=== PATIENT | female | born 1970 | race African-American/Black ===

== ENCOUNTER 2021-06-10 16:07 | Emergency (ER) | payer MEDICAID ==
[2021-06-10] MEDS ORDERED: HYDROmorphone 1 MG/ML CARPUJECT IM STA ×2 (16:32→17:32)
[2021-06-10] MEDS ORDERED: KETOROLAC 60 MG/2 ML VIAL IM STA (16:32)
[2021-06-10] MEDS ORDERED: CHERRY SYRUP 10 ML UDC PO ONE (16:32)
[2021-06-10] MEDS ORDERED: DEXAMETHASONE 10 MG/ML VIAL PO STA (16:32)
--- NOTE | 2021-06-10 16:33 | ED Physician Documentation ---
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 She felt a pop in her back, it was not painful at the time but this morning around 11:30 AM developed severe progressive left- sided low back pain radiating to the hip and thigh. There is no associated weakness, numbness, tingling, saddle anesthesia, incontinence, fever, IV drug use. She has not had back problems before. Review of Systems Constitutional: denies: Fever, Chills Eyes: reports: Reviewed and negative Ears: reports: Reviewed and negative Nose: reports: Reviewed and negative Throat: reports: Reviewed and negative PD PAST MEDICAL HISTORY - Present Medications Home Medications: Ambulatory Orders Medication Instructions Recorded Confirmed Ibuprofen [Motrin] 800 mg PO Q8H PRN #30 tablet 06/10/21 Oxycodone HCl/Acetaminophen 1 - 2 each PO Q6H PRN #14 tablet 06/10/21 [Percocet 5-325 mg Tablet] - Allergies Allergies/Adverse Reactions: Allergies Allergy/AdvReac Type Severity Reaction Status Date / Time No Known Drug Allergies Allergy Verified 06/10/21 16:19 - Social History Does the pt smoke?: No Smoking Status: Never smoker PD ED PE NORMAL - Vitals Vital signs reviewed: Yes - General General: Alert and oriented X 3, No acute distress - HEENT HEENT: PERRL, EOMI - Neck Neck: Supple, no meningeal sign, No bony TTP - Cardiac Cardiac: RRR, No murmur - Respiratory Respiratory: No respiratory distress, Clear bilaterally - Abdomen Abdomen: Non tender - Back Back: Other (She appears uncomfortable and winces with any motion. She does have significant tenderness of the left paralumbar musculature. No midline spinal tenderness.) - Extremities Extremities: Other (The patient has equal and normal Achilles and patellar reflexes bilaterally. Normal sensation in all areas of the legs. Patient denies saddle anesthesia. Normal strength in flexion-extension at the ankles, knees, and flexion of the hips.) - Neuro Neuro: Alert and oriented X 3, Normal speech Results - Vitals Vitals: Vital Signs - 24 hr 06/10/21 06/10/21 16:20 18:26 Temperature 36.7 C Heart Rate 94 86 Respiratory 20 18 Rate Blood Pressure 167/82 H 162/95 H O2 Saturation 94 100 Oxygen O2 Source Room air PD MEDICAL DECISION MAKING - ED course ED course: This patient has seemingly uncomplicated musculoskeletal back pain. The patient has no "red flags." Specifically denies IV drug use, fevers, incontinence, saddle anesthesia. Spinal epidural abscess was considered, given that the patient has no fever, is not diabetic, has no spinal tenderness, does not use IV drugs, and has no bilateral neurologic symptoms, the diagnosis of spinal epidural abscess is considered exceedingly unlikely. I am prescribing a short course of short-acting opioid pain medication for this patient. I have reviewed the patients EVENTS DIRECTOR and no concerning findings were noted. I have discussed that the opioids are for short term therapy only, and will not be refilled from the ED. Took a call from the patient after discharge. The patient had gone to the pharmacy where they declined to fill her prescription. It was unclear why. Initially it was because the quantity was too high, they would not fill 60 pills. I discussed with the patient that the prescription was at the pharmacy and electronically verified and the narcotic prescription was only about [address]. [address] the family member came back and received a prepack for the evening after the pharmacy was closed so that she could get through the night and deal with it in the morning. Departure - Departure Disposition: 01 Home, Self Care Clinical Impression: Back pain Qualifiers: Back pain location: low back pain Chronicity: acute Back pain laterality: left Sciatica presence: without sciatica Qualified Code(s): M54.50 - Low back pain, unspecified Condition: Good Record reviewed to determine appropriate education?: Yes Instructions: ED Low Back Pain Injury Follow-Up: AMBROCIO KIDD PA-C [Physician No Access] - Prescriptions: Ibuprofen [Motrin] 800 mg PO Q8H PRN #30 tablet PRN Reason: PAIN &/OR FEVER Oxycodone HCl/Acetaminophen [Percocet 5-325 mg Tablet] 1 - 2 each PO Q6H PRN #14 tablet PRN Reason: pain Comments: Prescription sent electronically to [facility] in [place]. The primary care provider on-call for follow-up this week is listed on this form. You can follow-up with her for recheck of your back. If pain is persistent consider physical therapy referral, if it is persistent past a couple of months also MRI. Return for new or worsening symptoms. I am prescribing a short course of narcotic pain medication for you. These are potentially dangerous and addictive medications that should be used carefully. These medications may constipate you. Take an ibxn-mxv-vurzskx stool softener (docusate) twice daily with plenty of water while taking these medications. If you go 24 hours without a bowel movement, take jhyd-flz-zjgfqkq miralax, per package instructions. Do not drink or drive while taking these medications. If you received narcotic or sedating medications while in the emergency department, do not drive for 24 hours. Store this medication in a safe, secure place and out of reach of children. It is a violation of federal law to give or sell this medication to another person or to use in a manner other than prescribed. The ED will not refill narcotic prescriptions, including prescriptions lost or stolen. To dispose of unwanted medications: 1. [facility] at [address] in [place] has a medication drop box. They accept prescription medications (in pill form) Wednesday through Wednesday 9:00 a.m. to 5:00 p.m. 2. [facility] accepts prescription medications (in pill form only) for disposal year round. Call for more inf ormation. 3. Contact the [facility] for the next [facility] sponsored prescription drug collection event. , [phone], or [phone]; Note that many narcotic pain relievers also contain Tylenol/acetaminophen. Please ensure that your total dose of acetaminophen from all sources does not exceed 3 g (3000 mg) per day. Forms: Activity restrictions Discharge Date/Time: 06/10/21 18:54
[2021-06-10 18:27] VITALS: BP 162/95
[2021-06-10] MEDS ORDERED: oxyCODONE/ACET 5/325 Prepack 4 PO STA (19:47)
== END 2021-06-10 18:54 | disposition home or self-care (01) ==
LOC: ED 16:07
DX: M54.50 Low back pain, unspecified (principal)
CPT/HCPCS: 96372; 99283; A9270; J1170

== ENCOUNTER 2022-09-16 11:27 | Outpatient (CLI) | payer MEDICAID ==
[2022-09-16 11:37] LABS: BASOPHILS % (AUTO) 0.2 %; EOSINOPHILS # (AUTO) 0.1 10^3/uL (0.0-0.7); EOSINOPHILS % (AUTO) 0.6 %; HGB - HEMOGLOBIN 11.7 g/dL (12.0-16.0); LYMPHOCYTES # (AUTO) 3.1 10^3/uL (1.5-3.5); LYMPHOCYTES % (AUTO) 33.1 %; MEAN CORPUSCULAR HEMOGLOBIN 27.1 pg (27.0-31.0); MEAN CORPUSCULAR HGB CONC 30.8 g/dL (32.0-36.0); MEAN CORPUSCULAR VOLUME 88.2 fL (81.0-99.0); MEAN PLATELET VOLUME 9.3 fL (7.9-10.8); MONOCYTES # (AUTO) 0.7 10^3/uL (0.0-1.0); MONOCYTES % (AUTO) 7.8 %; NEUTROPHILS # (AUTO) 5.4 10^3/uL (1.5-6.6); PLT - PLATELET COUNT 367 10^3/uL (130-450); RED BLOOD COUNT 4.31 10^6/uL (4.20-5.40); WHITE BLOOD COUNT 9.3 x10^3/uL (4.8-10.8)
[2022-09-16 12:23] LABS: CHOL/HDL RATIO 5.7 (<4.4); CHOLESTEROL 240 mg/dL; HDL CHOLESTEROL 42 mg/dL; LDL CHOLESTEROL,CALCULATED 162 mg/dL; LDL/HDL RATIO 3.9 (<4.4); TRIGLYCERIDES 180 mg/dL; VLDL CHOLESTEROL 36 mg/dL
[2022-09-16 12:28] LABS: THYROID STIMULATING HORMONE 2.56 uIU/mL (0.34-5.60)
[2022-09-16 12:30] LABS: ESTIMATED AVERAGE GLUCOSE 131 mg/dL (70-100); FREE T4 (FREE THYROXINE) 0.87 ng/dL (0.58-1.64); HEMOGLOBIN A1c% 6.2 % (4.27-6.07)
[2022-09-16 12:34] LABS: FERRITIN 27.2 ng/mL (11.0-306.8)
== END 2022-09-16 11:28 | disposition home or self-care (01) ==
LOC: LAB 11:27
PROVIDERS: ATTEND Nurse Practitioner
DX: Z13.29 Encounter for screening for other suspected endocrine disorder (principal); Z13.220 Encounter for screening for lipoid disorders; Z13.0 Encounter for screening for diseases of the blood and blood-forming organs and certain disorders involving the immune mechanism; Z13.1 Encounter for screening for diabetes mellitus
CPT/HCPCS: 36415; 80061; 82728; 83036; 83721; 84439; 84443; 85025

== ENCOUNTER 2022-11-04 11:17 | Outpatient (CLI) | payer MEDICAID ==
--- NOTE | 2022-11-04 12:15 | Ultrasound Report ---
PROCEDURE: Pelvic w/Transvaginal INDICATIONS: ABN UTERINE BLEEDING TECHNIQUE: Real-time scanning was performed of the pelvic organs, with image documentation. Additional endovagi nal scanning was not performed. COMPARISON: None. FINDINGS: Uterus: Uterus is anteverted and normal in size at 11.7 x 5.9 x 5.6 cm. The myometrium is homogeneo us. The endometrium measures 13.9 mm in combined thickness. Ovaries: The right ovary measures 2.2 x 1.5 x 2.8 cm, with a calculated ovarian volume of 5 cc. The left ovary measures 3.7 x 1.6 x 1.6 cm, with a calculated ovarian volume of 5.3 cc. The ovaries hav e a normal sonographic appearance. Less than 12 follicles can be seen in each ovary. No adnexal mas ses are seen. Other: No pathologic free abdominal or pelvic fluid. IMPRESSION: Endometrial stripe is thickened, measuring 14 mm. Consider sampling. Reviewed by: Renny Cole on 11/04/2022 12:14 PM PDT Approved by: Renny Cole on 11/04/2022 12:14 PM PDT Station ID: [id number]
== END 2022-11-04 11:18 | disposition home or self-care (01) ==
LOC: DI 11:17
PROVIDERS: ATTEND Nurse Practitioner
DX: N93.9 Abnormal uterine and vaginal bleeding, unspecified (principal); R93.89 Abnormal findings on diagnostic imaging of other specified body structures

== ENCOUNTER 2023-05-11 10:42 | Outpatient (CLI) | payer MEDICAID ==
--- NOTE | 2023-05-12 10:14 | Mammography Report ---
UNILATERAL RIGHT DIGITAL DIAGNOSTIC MAMMOGRAM 3D/2D WITH SPOT COMPRESSION: 05/11/2023 CLINICAL: Patient returns for additional imaging over a suspected masses in the right breast. Comparison is made to exam dated: 04/15/2023 mammogram - [facility]. The right breast is heterogeneously dense, which may obscure small masses (category c / 51-75% glandu lar tissue). There is an oval mass in the right breast at 6 o'clock middle depth. This is seen in additional view s. There also is a round mass in the right breast central to the nipple middle depth. This is seen in a dditional views. No other significant masses or calcifications are seen in the breast. IMPRESSION: INCOMPLETE: NEEDS ADDITIONAL IMAGING EVALUATION The oval mass in the right breast at 6 o'clock middle depth likely represents a cyst and is indetermi mary. An ultrasound is recommended. The round mass in the right breast central to the nipple middle depth likely represents a cyst and is indeterminate. An ultrasound is recommended. A targeted ultrasound of the right breast is recommended and will be performed immediately following this exam. Based on the Tyrer Cuzick model (a risk assessment model) the patients lifetime risk is 11.6% and he r 10 year risk is 3.0%. According to the ACR, ACS, and NCCN guidelines, an annual breast MRI exam rex ng with mammogram is recommended if the patients lifetime risk is 20% or greater. This exam was interpreted at Station ID: [id number]. NOTE: For mammograms, a report in lay terms will be sent to the patient. Approximately 15% of breast malignancies will not be visualized mammographically. In the management of a palpable breast mass, a negative mammogram must not discourage biopsy of a clinically suspicious lesion. Electronically Signed By: Jazmin Andres M.D. lk/:05/11/2023 11:58:04 ACR BI-RADS Category 0: Incomplete 3340F PARENCHYMAL PATTERN: (D) - The breast(s) demonstrate(s) heterogeneously dense fibroglandular parsangeethay socrates. BI-RADS CATEGORY: (0) - 0 Ultrasound [id number] Immediate follow-up LATERALITY: (B)
--- NOTE | 2023-05-12 10:15 | Ultrasound Report ---
LIMITED ULTRASOUND OF RIGHT BREAST: 05/11/2023 CLINICAL: Patient returns for additional imaging over a suspected masses in the right breast. Comparison is made to exams dated: 05/11/2023 mammogram and 04/15/2023 mammogram - [facility]. Color flow ultrasound of the right breast 5 o'clock and 12 o'clock regions was performed on the areas of interest. Romo scale images of the real-time examination were reviewed. There is an oval simple cyst in the right breast at 5 o'clock middle depth. This oval simple cyst is anechoic. This correlates with mammography findings. Color flow imaging demonstrates that there is no vascularity present. There also is an oval simple cyst in the right breast central to the nipple middle depth. This oval simple cyst is anechoic. This correlates with mammography findings. IMPRESSION: BENIGN There is no sonographic evidence of malignancy. The oval simple cyst in the right breast at 5 o'clock middle depth is benign. The oval simple cyst in the right breast central to the nipple middle depth is benign. A 1 year screening mammogram is recommended. This exam was interpreted at Station ID: [id number]. Electronically Signed By: Jazmin Andres M.D. lk/:05/11/2023 11:59:41 Ultrasound BI-RADS: 2 Benign BI-RADS CATEGORY: (2) - 2 Mammogram [id number] 1 year screening LATERALITY: (B)
== END 2023-05-11 10:43 | disposition home or self-care (01) ==
LOC: DI 10:42
PROVIDERS: ATTEND Nurse Practitioner
DX: R92.8 Other abnormal and inconclusive findings on diagnostic imaging of breast (principal); N60.01 Solitary cyst of right breast

== ENCOUNTER 2023-06-29 09:45 | Outpatient (CLI) | payer MEDICAID ==
--- NOTE | 2023-06-28 12:39 | XRAY Report ---
PROCEDURE: Knee 4 View RT INDICATIONS: RIGHT KNEE PAIN TECHNIQUE: 4 views of the knee(s) were acquired. COMPARISON: None. FINDINGS: Bones: No fractures or dislocations. No suspicious bony lesions. Tricompartment osteophytes. Mild medial compartment joint space loss. Soft tissues: Trace knee joint effusion. No suspicious soft tissue calcifications or masses. IMPRESSION: Degenerative arthritis of the right knee. Reviewed by: Thad Humphries MD on 06/28/2023 12:38 PM PST Approved by: Thad Humphries MD on 06/28/2023 12:38 PM PST Station ID: [id number]
== END 2023-06-29 23:59 | disposition home or self-care (01) ==
LOC: DI.WOS 09:45
PROVIDERS: ATTEND Physician Assistant Surgical
DX: M17.11 Unilateral primary osteoarthritis, right knee (principal)